=== PATIENT | male | born 1970 | race Caucasian/White ===

== ENCOUNTER 2017-01-06 19:08 | Emergency (ER) | payer OTHER, BC ==
[~2017-01-06] VITALS: Ht 185.4 cm; Wt 121.3 kg
[~2017-01-06 19:08] MED LIST: AXIRON90 ML TD; IMITREX100 MG PO; KADIAN60 MG PO; LYRICA200 MG PO; METOPROLOL SUC100 MG PO; NAMENDA XR28 MG PO; PERCOCET 10/1 TABLET PO; ROBAXIN750 MG PO
[2017-01-06] MEDS ORDERED: HYDROCHLOROTHIA25 MG PO (20:55)
[2017-01-06] MEDS ORDERED: PEPCID20 MG PO (21:55)
[2017-01-06] MEDS ORDERED: PREDNISONE20 MG PO (21:55)
[2017-01-06 22:18] VITALS: BP 131/65
== END 2017-01-06 22:18 | disposition home or self-care (01) ==
LOC: EME 19:08
DX: T50.2X5A Adverse effect of carbonic-anhydrase inhibitors, benzothiadiazides and other diuretics, initial encounter (principal); J02.9 Acute pharyngitis, unspecified; R22.0 Localized swelling, mass and lump, head; L53.9 Erythematous condition, unspecified; G62.9 Polyneuropathy, unspecified; Z97.8 Presence of other specified devices; Z87.891 Personal history of nicotine dependence; Z79.891 Long term (current) use of opiate analgesic
CPT/HCPCS: 87651 90; 99281; 99284; J1200; J7512

== ENCOUNTER 2017-01-12 19:42 | Emergency (ER) | payer OTHER, BC ==
[~2017-01-12] VITALS: Ht 185.4 cm; Wt 118.7 kg
[~2017-01-12 19:42] MED LIST changes: +HYDROCHLOROTHIA25 MG PO; +PEPCID20 MG PO; +PREDNISONE20 MG PO
[2017-01-12] MEDS ORDERED: BENTYL10 MG PO (20:55)
[2017-01-12 21:03] VITALS: BP 161/94
== END 2017-01-12 21:04 | disposition home or self-care (01) ==
LOC: EME 19:42
DX: K11.7 Disturbances of salivary secretion (principal); Z79.891 Long term (current) use of opiate analgesic; Z87.891 Personal history of nicotine dependence
CPT/HCPCS: 99281; 99283

== ENCOUNTER 2017-10-15 12:29 | Inpatient (IN) | payer OTHER, BC ==
[~2017-10-15] VITALS: Ht 185.4 cm; Wt 118.4 kg
[~2017-10-15 12:29] MED LIST changes: +BENTYL10 MG PO
[2017-10-15 14:02] LABS: BASE EXCESS 4.6 mEq/L (-3 to +3); BICARBONATE 29.8 mEq/L (22-26); CARBOXY HGB 1.7 % (0-5); COMMENTS - BLOOD GASES A+C+; METHEMOGLOBIN 0.5 % (0-1.5); PCO2 46 mm Hg (35-45); PO2 50 mm Hg (80-100); SITE RR; TOTAL RESP RATE 14 resp/min; pH 7.42 (7.35-7.45)
[2017-10-15 14:03] LABS: EOSINOPHIL (%) 1.5 % (0-5); EOSINOPHIL COUNT 0.1 K/uL (0-0.3); HEMATOCRIT 36.7 % (38.0-50.0); IMMATURE GRANULOCYTE (%) 0.2 % (0.0-0.7); INSTRUMENT ABS NEUTROPHIL CT 3.9 K/uL; LYMPHOCYTE COUNT 1.3 K/uL (1.0-2.8); MCH 29.3 PG (29.0-34.0); MCHC 33.2 G/DL (30.0-36.0); MCV 88.2 FL (86-99); MEAN PLAT.VOLUME 10.3 uM^3 (9.0-12.4); MONOCYTE (%) 12.3 % (3-12); MONOCYTE COUNT 0.8 K/uL (0-0.8); NEUTROPHIL COUNT 3.9 K/uL (1.8-6.4); PLATELET COUNT 156 K/uL (156-360); RBC DIS.WIDTH-CV 12.6 % (11.8-14.6); RED BLOOD COUNT 4.16 M/uL (4.00-5.50); WHITE BLOOD COUNT 6.1 K/uL (4.1-10.2)
[2017-10-15 14:12] LABS: CHLORIDE 107 mEq/L (99-109); POTASSIUM 3.7 mEq/L (3.7-5.4); SODIUM 140 mEq/L (136-147)
[2017-10-15 14:14] LABS: GLUCOSE 97 mg/dL (70-99)
[2017-10-15 14:15] LABS: ANION GAP 8 MEQ/L (2-14)
[2017-10-15 14:17] LABS: GFR ESTIMATE (CALCULATED) > 59 mL/min/
[2017-10-15 14:18] LABS: UREA NITROGEN (BUN) 11 mg/dL (9-23)
[2017-10-15 14:26] LABS: TROP-I INTERPRETATION NEGATIVE; TROPONIN-I < 0.01 ng/mL (0.0-0.30)
[2017-10-15] MEDS ORDERED: RANITIDINE HCL150 MG PO (15:45)
[2017-10-15] MEDS ORDERED: OMEPRAZOLE20 MG PO (15:45)
[2017-10-15] MEDS ORDERED: DILAUDID (15:51)
[2017-10-15] MEDS ORDERED: FLUTICASONE PRO16 GM BOTH NARES (16:34)
[2017-10-15] MEDS ORDERED: ADVIL200 MG PO (16:35)
[2017-10-15] MEDS ORDERED: LODINE400 MG PO (16:36)
[2017-10-15] MEDS ORDERED: AZELASTINE137 MCG/0. BOTH NARES (16:37)
[2017-10-15] MEDS ORDERED: ALLEGRA ALLERG180 MG PO (16:38)
[2017-10-15 16:44] LABS: INTER. NORMALIZED RATIO 1.1; PROTHROMBIN TIME 12.6 SEC (10.2-12.9)
[2017-10-15 16:46] LABS: PTT 30.2 SEC (25-37)
[2017-10-15] MEDS ORDERED: TESTONE CI200 MG/1 M IM (16:49)
[2017-10-15 17:43] VITALS: BP 154/98
[2017-10-15 20:53] LABS: TROP-I INTERPRETATION NEGATIVE; TROPONIN-I < 0.01 ng/mL (0.0-0.30)
[2017-10-15 23:39] VITALS: BP 121/69
[2017-10-16 03:16] LABS: TROP-I INTERPRETATION NEGATIVE; TROPONIN-I < 0.01 ng/mL (0.0-0.30)
[2017-10-16 04:22] LABS: HEMATOCRIT 37.1 % (38.0-50.0); MCH 29.8 PG (29.0-34.0); MCHC 33.2 G/DL (30.0-36.0); MCV 89.8 FL (86-99); MEAN PLAT.VOLUME 10.2 uM^3 (9.0-12.4); PLATELET COUNT 153 K/uL (156-360); RBC DIS.WIDTH-CV 12.6 % (11.8-14.6); RBC DIS.WIDTH-SD 41.6 % (39-53); RED BLOOD COUNT 4.13 M/uL (4.00-5.50); WHITE BLOOD COUNT 4.7 K/uL (4.1-10.2)
[2017-10-16 04:24] VITALS: BP 135/83
[2017-10-16 04:28] LABS: INTER. NORMALIZED RATIO 1.2; PROTHROMBIN TIME 13.1 SEC (10.2-12.9)
[2017-10-16 04:33] LABS: PTT 41.5 SEC (25-37)
[2017-10-16 04:35] LABS: CHLORIDE 105 mEq/L (99-109); POTASSIUM 4.2 mEq/L (3.7-5.4); SODIUM 142 mEq/L (136-147)
[2017-10-16 04:37] LABS: GLUCOSE 105 mg/dL (70-99)
[2017-10-16 04:38] LABS: ANION GAP 9 MEQ/L (2-14)
[2017-10-16 04:39] LABS: TOTAL BILIRUBIN 1.4 mg/dL (0.0-1.0)
[2017-10-16 04:40] LABS: ALKALINE PHOSPHATASE 66 IU/L (3-129)
[2017-10-16 04:41] LABS: GFR ESTIMATE (CALCULATED) > 59 mL/min/
[2017-10-16 04:42] LABS: UREA NITROGEN (BUN) 10 mg/dL (9-23)
[2017-10-16 08:19] VITALS: BP 126/76
[2017-10-16 11:46] LABS: INTER. NORMALIZED RATIO 1.2; PROTHROMBIN TIME 13.3 SEC (10.2-12.9)
[2017-10-16 11:49] LABS: PTT 53.2 SEC (25-37)
[2017-10-16] MEDS ORDERED: MOVANTIK25 MG PO (11:52)
[2017-10-16 11:55] VITALS: BP 129/85
[2017-10-16 17:01] LABS: INTER. NORMALIZED RATIO 1.1
[2017-10-16 17:03] LABS: PTT 42.5 SEC (25-37)
[2017-10-16 17:04] VITALS: BP 125/75
[2017-10-16 18:52] LABS: INTER. NORMALIZED RATIO 1.1; PROTHROMBIN TIME 12.6 SEC (10.2-12.9)
[2017-10-16 18:55] LABS: PTT 42.1 SEC (25-37)
[2017-10-16 19:35] VITALS: BP 121/78
[2017-10-17 00:19] VITALS: BP 152/89
[2017-10-17 00:50] LABS: INTER. NORMALIZED RATIO 1.1; PROTHROMBIN TIME 12.5 SEC (10.2-12.9)
[2017-10-17 01:24] LABS: PTT 88.9 SEC (25-37)
[2017-10-17 08:00] VITALS: BP 132/71
[2017-10-17 09:24] LABS: INTER. NORMALIZED RATIO 1.1; PROTHROMBIN TIME 13.1 SEC (10.2-12.9)
[2017-10-17 09:29] LABS: PTT 54.6 SEC (25-37)
[2017-10-17 16:13] VITALS: BP 130/56
[2017-10-17 20:06] VITALS: BP 127/71
[2017-10-17 23:45] VITALS: BP 128/71
[2017-10-18 07:41] VITALS: BP 146/80
[2017-10-18 12:26] VITALS: BP 133/89
[2017-10-18] MEDS ORDERED: XARELTO15 MG PO ×3 (15:34→17:06)
[2017-10-18 16:25] VITALS: BP 121/72
== END 2017-10-18 20:02 | disposition home health service (06) | DRG 175 ==
LOC: EME 12:29 → 5SOUTH 15:52 → EDOF 15:52 → ENRESERV 15:58 → 5SOUTH 17:22
PROVIDERS: Emergency Medicine; Internal Medicine; Physician Assistant Medical
DX: I26.99 Other pulmonary embolism without acute cor pulmonale (principal); J96.91 Respiratory failure, unspecified with hypoxia; J98.11 Atelectasis; F33.9 Major depressive disorder, recurrent, unspecified; M17.12 Unilateral primary osteoarthritis, left knee; G47.33 Obstructive sleep apnea (adult) (pediatric); I10 Essential (primary) hypertension; D64.9 Anemia, unspecified; F41.9 Anxiety disorder, unspecified; G89.29 Other chronic pain; M54.9 Dorsalgia, unspecified; E66.9 Obesity, unspecified; G62.9 Polyneuropathy, unspecified; R59.1 Generalized enlarged lymph nodes; Z99.89 Dependence on other enabling machines and devices; Z79.01 Long term (current) use of anticoagulants; Z87.891 Personal history of nicotine dependence; Z23 Encounter for immunization; Z98.1 Arthrodesis status; Z68.34 Body mass index [BMI] 34.0-34.9, adult
CPT/HCPCS: 36600; 71010; 71275; 80048; 80053; 82803; 84484; 85025; 85027; 85379; 85610; 85730; 90686; 93005; 93306; 93970; 94799; 99281; 99285

== ENCOUNTER 2017-11-20 18:06 | Emergency (ER) | payer OTHER, BC ==
[~2017-11-20] VITALS: Ht 185.4 cm; Wt 125.4 kg
[~2017-11-20 18:06] MED LIST changes: +ADVIL200 MG PO; +ALLEGRA ALLERG180 MG PO; +AZELASTINE137 MCG/0. BOTH NARES; +DILAUDID; +FLUTICASONE PRO16 GM BOTH NARES; +LODINE400 MG PO; +MOVANTIK25 MG PO; +OMEPRAZOLE20 MG PO; +RANITIDINE HCL150 MG PO; +TESTONE CI200 MG/1 M IM; +XARELTO15 MG PO
[2017-11-20 21:18] VITALS: BP 126/73
== END 2017-11-20 21:29 | disposition home or self-care (01) ==
LOC: EME 18:06
DX: H11.32 Conjunctival hemorrhage, left eye (principal); S05.02XA Injury of conjunctiva and corneal abrasion without foreign body, left eye, initial encounter; X58.XXXA Exposure to other specified factors, initial encounter; Z79.01 Long term (current) use of anticoagulants; Z86.711 Personal history of pulmonary embolism; Z87.891 Personal history of nicotine dependence
CPT/HCPCS: 99281; 99284